=== PATIENT | female | born 1970 | race Caucasian/White ===

== ENCOUNTER 2025-05-14 13:53 | Inpatient (IN) | payer OTHER ==
[~2025-05-14] VITALS: Ht 162.6 cm; Wt 111.6 kg
[2025-05-14 17:00] VITALS: BP 120/76; PULSE 71; RESP 18; TEMP 98.8; O2SAT 98
[2025-05-14] MEDS ORDERED: DICLOFENAC SODIUM 1% 100 GM GEL [4GM] TP PRN (17:45)
[2025-05-14] MEDS: OxyCODONE HCL 5 MG IR TABLET PO PRN (18:43)
[2025-05-14] MEDS ORDERED: DEXTROSE 50%-WATER 25 GM/50 ML SYRINGE IVP PRN (18:45)
[2025-05-14] MEDS: INSULIN LISPRO 100 UNITS/ML SQ PRN (18:51)
[2025-05-14 19:00] LABS: GLUCOMETER DEV NAME(LOC) 2WR.2C; GLUCOSE,POINT OF CARE 148 MG/DL (70-110)
[2025-05-14 20:38] VITALS: BP 143/96; PULSE 79; RESP 18; TEMP 97.7; O2SAT 99
[2025-05-14] MEDS: GABAPENTIN 100 MG CAPSULE PO SCH (20:42)
[2025-05-14] MEDS: CALCIUM [CALCIUM CARB 1250MG] 500 MG TABLET PO SCH (20:42)
[2025-05-14] MEDS: CLOTRIMAZOLE 1% 15 GM CREAM TP SCH (20:42)
[2025-05-14] MEDS: HEPARIN SODIUM,PORCINE 5,000 UNITS/ML VIAL SQ SCH (20:42)
[2025-05-14] MEDS: ETHYL ALCOHOL 62% ANTISEPTIC NASAL SANITIZER 0.6 ML AMPUL NASAL SCH (20:43)
[2025-05-14] MEDS: SIMVASTATIN 40 MG TABLET PO SCH (20:48)
[2025-05-14] MEDS: METOPROLOL TARTRATE 25 MG TABLET PO SCH (20:48)
[2025-05-14] MEDS: -LIDODERM PATCH NOTE- MISC SCH (20:49)
[2025-05-14] MEDS: ACETAMINOPHEN 500 MG TABLET PO SCH (20:52)
[2025-05-15 00:16] LABS: GLUCOMETER DEV NAME(LOC) 2WR.2C; GLUCOSE,POINT OF CARE 151 MG/DL (70-110)
[2025-05-15 03:14] VITALS: O2SAT 99
[2025-05-15 07:15] LABS: GLUCOMETER DEV NAME(LOC) 2WR.1D; GLUCOSE,POINT OF CARE 157 MG/DL (70-110)
[2025-05-15] MEDS: LEVOTHYROXINE SODIUM 125 MCG TABLET PO SCH (07:24)
[2025-05-15] MEDS: OMEPRAZOLE 20 MG CAPSULE PO SCH (07:25)
[2025-05-15] MEDS: POLYETHYLENE GLYCOL 3350 17 GM PACKET PO SCH (08:08)
[2025-05-15] MEDS: FOLIC ACID 1 MG TABLET PO SCH (08:08)
[2025-05-15 08:09] VITALS: BP 134/78; PULSE 63; RESP 18; TEMP 98.1; O2SAT 100
[2025-05-15] MEDS: THIAMINE 100 MG TABLET PO SCH (08:09)
[2025-05-15] MEDS: LIDOCAINE 5% TRANSDERMAL PATCH TD SCH (08:10)
[2025-05-15 10:16] LABS: PLATELET COUNT (AUTO) 150 K/uL (150-450); RED BLOOD CELL COUNT(AUTO) 3.97 MIL/uL (4.00-5.20); RED CELL DISTRIBUTION WIDTH 14.2 % (11.5-14.5); WHITE BLOOD COUNT (AUTO) 10.0 K/uL (4.5-11.0)
[2025-05-15 10:32] LABS: ASPARTATE AMINOTRANSFERASE 43 U/L (15-37); CALCIUM, TOTAL 8.9 mg/dL (8.8-10.5); CREATININE 0.47 mg/dL (0.60-1.30); GLOMERULAR FILTR. RATE CALC > 60 mL/min (>60); GLUCOSE,RANDOM 122 mg/dL (70-110); SODIUM SERUM 134 mmol/L (136-145); TOTAL PROTEIN, SERUM 6.6 g/dL (6.4-8.2); UREA NITROGEN, BLOOD 18 mg/dL (7-18)
[2025-05-15 12:51] LABS: GLUCOMETER DEV NAME(LOC) 2WR.1D; GLUCOSE,POINT OF CARE 144 MG/DL (70-110)
[2025-05-15] MEDS ORDERED: OxyCODONE HCL 5 MG IR TABLET PO PRN (13:45)
[2025-05-15] MEDS: ACETAMINOPHEN 325 MG TABLET PO SCH (15:18)
[2025-05-15] MEDS: HEPARIN SODIUM,PORCINE 5,000 UNITS/ML VIAL SQ SCH (15:18)
[2025-05-15] MEDS: GABAPENTIN 300 MG CAPSULE PO SCH (15:18)
[2025-05-15 20:48] VITALS: BP 132/78; PULSE 72; RESP 18; TEMP 98.1; O2SAT 97
[2025-05-16 05:05] LABS: GLUCOMETER DEV NAME(LOC) 2WR.1D; GLUCOSE,POINT OF CARE 164 MG/DL (70-110)
[2025-05-16 05:05] LABS: GLUCOMETER DEV NAME(LOC) 2WR.1D; GLUCOSE,POINT OF CARE 159 MG/DL (70-110)
[2025-05-16 06:37] VITALS: BP 136/94
[2025-05-16] MEDS: OxyCODONE HCL 10 MG IR TABLET PO PRN (06:37)
[2025-05-16 07:05] LABS: GLUCOMETER DEV NAME(LOC) 2WR.2C; GLUCOSE,POINT OF CARE 161 MG/DL (70-110)
[2025-05-16 07:30] VITALS: BP 137/88; PULSE 78; RESP 18; TEMP 97.7; O2SAT 98
[2025-05-16 08:00] VITALS: BP 137/88; PULSE 78; RESP 18; TEMP 97.7; O2SAT 98
[2025-05-16] MEDS ORDERED: BISACODYL 10 MG RECTAL RECTAL SUPPOSITORY PR PRN (11:15)
[2025-05-16 12:00] LABS: GLUCOMETER DEV NAME(LOC) 2WR.2C; GLUCOSE,POINT OF CARE 128 MG/DL (70-110)
[2025-05-16 17:41] LABS: GLUCOMETER DEV NAME(LOC) 2WR.2C; GLUCOSE,POINT OF CARE 181 MG/DL (70-110)
[2025-05-16 19:27] VITALS: O2SAT 98
[2025-05-16] MEDS: TAMSULOSIN HCL 0.4 MG CAPSULE PO SCH (20:25)
[2025-05-16] MEDS: GABAPENTIN 300 MG CAPSULE PO SCH (20:25)
[2025-05-16 20:39] VITALS: BP 125/71; PULSE 73; RESP 18; TEMP 98.1; O2SAT 96
[2025-05-16] MEDS ORDERED: GABAPENTIN 300 MG CAPSULE PO SCH (21:00)
[2025-05-16 23:36] LABS: GLUCOMETER DEV NAME(LOC) 2WR.2C; GLUCOSE,POINT OF CARE 145 MG/DL (70-110)
[2025-05-17 06:36] VITALS: BP 118/75; PULSE 85
[2025-05-17] MEDS: GABAPENTIN 300 MG CAPSULE PO SCH (06:38)
[2025-05-17 06:56] LABS: GLUCOMETER DEV NAME(LOC) 2WR.2C; GLUCOSE,POINT OF CARE 140 MG/DL (70-110)
[2025-05-17 07:34] VITALS: BP 134/85; PULSE 83; RESP 18; TEMP 97.5; O2SAT 95
[2025-05-17 13:26] LABS: GLUCOMETER DEV NAME(LOC) 2WR.2C; GLUCOSE,POINT OF CARE 157 MG/DL (70-110)
[2025-05-17] MEDS: ACETAMINOPHEN 325 MG TABLET PO PRN (14:16)
[2025-05-17] MEDS: BISACODYL 10 MG RECTAL RECTAL SUPPOSITORY PR SCH (17:00)
[2025-05-17 17:50] LABS: GLUCOMETER DEV NAME(LOC) 2WR.2C; GLUCOSE,POINT OF CARE 136 MG/DL (70-110)
[2025-05-17 20:00] VITALS: BP 93/58; PULSE 85; RESP 18; TEMP 98.6; O2SAT 96
[2025-05-17 20:39] VITALS: BP 95/53; PULSE 84
[2025-05-17 20:40] VITALS: BP 96/54; PULSE 82
[2025-05-18 01:11] LABS: GLUCOMETER DEV NAME(LOC) 2WR.1D; GLUCOSE,POINT OF CARE 132 MG/DL (70-110)
[2025-05-18 07:00] LABS: GLUCOMETER DEV NAME(LOC) 2WR.1D; GLUCOSE,POINT OF CARE 152 MG/DL (70-110)
[2025-05-18 08:00] VITALS: BP 119/84; PULSE 119; RESP 20; TEMP 97.7; O2SAT 95
[2025-05-18 12:26] LABS: GLUCOMETER DEV NAME(LOC) 2WR.1D; GLUCOSE,POINT OF CARE 144 MG/DL (70-110)
[2025-05-18 16:56] LABS: GLUCOMETER DEV NAME(LOC) 2WR.1D; GLUCOSE,POINT OF CARE 155 MG/DL (70-110)
[2025-05-18 19:25] VITALS: PULSE 89; O2SAT 97
[2025-05-18 20:38] VITALS: BP 106/57; PULSE 86; RESP 18; TEMP 98.1; O2SAT 98
[2025-05-18 20:41] VITALS: BP 107/67; PULSE 87
[2025-05-18 21:20] LABS: GLUCOMETER DEV NAME(LOC) 2WR.2C; GLUCOSE,POINT OF CARE 145 MG/DL (70-110)
[2025-05-18 21:41] VITALS: O2SAT 98
[2025-05-19 07:20] VITALS: BP 105/81; PULSE 105; RESP 18; TEMP 98.2; O2SAT 98
[2025-05-19 07:25] LABS: GLUCOMETER DEV NAME(LOC) 2WR.1D; GLUCOSE,POINT OF CARE 171 MG/DL (70-110)
[2025-05-19 09:15] VITALS: BP 120/75; PULSE 108; RESP 18; TEMP 98.6; O2SAT 98
[2025-05-19 12:31] LABS: GLUCOMETER DEV NAME(LOC) 2WR.1D; GLUCOSE,POINT OF CARE 130 MG/DL (70-110)
[2025-05-19 16:50] LABS: GLUCOMETER DEV NAME(LOC) 2WR.1D; GLUCOSE,POINT OF CARE 153 MG/DL (70-110)
[2025-05-19 21:00] VITALS: BP 96/62; PULSE 92; RESP 18; TEMP 98.8; O2SAT 95
[2025-05-19 21:56] VITALS: BP 100/67; PULSE 95
[2025-05-19 22:01] LABS: GLUCOMETER DEV NAME(LOC) 2WR.1D; GLUCOSE,POINT OF CARE 131 MG/DL (70-110)
[2025-05-20 06:34] VITALS: BP 126/76; PULSE 100
[2025-05-20 06:56] LABS: GLUCOMETER DEV NAME(LOC) 2WR.2C; GLUCOSE,POINT OF CARE 156 MG/DL (70-110)
[2025-05-20 07:30] VITALS: BP 112/79; PULSE 59; RESP 18; TEMP 97.5; O2SAT 97
[2025-05-20 13:10] LABS: GLUCOMETER DEV NAME(LOC) 2WR.2C; GLUCOSE,POINT OF CARE 179 MG/DL (70-110)
[2025-05-20 14:19] VITALS: O2SAT 96
[2025-05-20 18:30] LABS: GLUCOMETER DEV NAME(LOC) 2WR.2C; GLUCOSE,POINT OF CARE 133 MG/DL (70-110)
[2025-05-20 20:43] VITALS: BP 107/74; PULSE 78; RESP 18; TEMP 98.2; O2SAT 98
[2025-05-20 21:17] VITALS: O2SAT 98
[2025-05-21 05:50] LABS: GLUCOMETER DEV NAME(LOC) 2WR.2C; GLUCOSE,POINT OF CARE 161 MG/DL (70-110)
[2025-05-21 06:22] LABS: PLATELET COUNT (AUTO) 140 K/uL (150-450); RED BLOOD CELL COUNT(AUTO) 3.24 MIL/uL (4.00-5.20); RED CELL DISTRIBUTION WIDTH 13.6 % (11.5-14.5); WHITE BLOOD COUNT (AUTO) 5.2 K/uL (4.5-11.0)
[2025-05-21 06:35] LABS: GLUCOMETER DEV NAME(LOC) 2WR.1D; GLUCOSE,POINT OF CARE 169 MG/DL (70-110)
[2025-05-21 06:46] LABS: ASPARTATE AMINOTRANSFERASE 29 U/L (15-37); CALCIUM, TOTAL 8.6 mg/dL (8.8-10.5); CREATININE 0.56 mg/dL (0.60-1.30); GLOMERULAR FILTR. RATE CALC > 60 mL/min (>60); GLUCOSE,RANDOM 178 mg/dL (70-110); SODIUM SERUM 141 mmol/L (136-145); TOTAL PROTEIN, SERUM 5.7 g/dL (6.4-8.2); UREA NITROGEN, BLOOD 15 mg/dL (7-18)
[2025-05-21 06:52] LABS: RBC MORPHOLOGY COMMENT ABNORMAL RBC MORPH
[2025-05-21 08:35] VITALS: BP 106/59; PULSE 91; RESP 18; TEMP 98.2; O2SAT 97
[2025-05-21 12:20] LABS: GLUCOMETER DEV NAME(LOC) 2WR.1D; GLUCOSE,POINT OF CARE 117 MG/DL (70-110)
[2025-05-21] MEDS ORDERED: INSULIN LISPRO 100 UNITS/ML SQ PRN (13:45)
[2025-05-21 17:10] LABS: GLUCOMETER DEV NAME(LOC) 2WR.1D; GLUCOSE,POINT OF CARE 134 MG/DL (70-110)
[2025-05-21 17:43] LABS: APPEARANCE,URINE HAZY (CLEAR); GLUCOSE, URINE (UA) NEGATIVE (NEGATIVE); LEUKOCYTE ESTERASE ,URINE LARGE (NEGATIVE); NITRATE,URINE POSITIVE (NEGATIVE); OCCULT BLOOD,URINE TRACE (NEGATIVE); SPECIFIC GRAVITIY, URINE 1.028 (1.003-1.030)
[2025-05-21 20:00] VITALS: BP 92/59; PULSE 90; RESP 18; TEMP 98.6; O2SAT 100
[2025-05-21] MEDS: NITROFURANTOIN MONOHYD/M-CRYST 100 MG CAPSULE [MACROBID] PO SCH (20:10)
[2025-05-21] MEDS: TAMSULOSIN HCL 0.4 MG CAPSULE PO SCH (20:11)
[2025-05-21 21:11] LABS: GLUCOMETER DEV NAME(LOC) 2WR.2C; GLUCOSE,POINT OF CARE 135 MG/DL (70-110)
[2025-05-22 07:41] LABS: GLUCOMETER DEV NAME(LOC) 2WR.2C; GLUCOSE,POINT OF CARE 203 MG/DL (70-110)
[2025-05-22 08:00] VITALS: BP 133/66; PULSE 91; RESP 18; TEMP 98.4; O2SAT 95
[2025-05-22] MEDS: INSULIN LISPRO 100 UNITS/ML SQ PRN (08:39)
[2025-05-22 12:41] LABS: GLUCOMETER DEV NAME(LOC) 2WR.1D; GLUCOSE,POINT OF CARE 207 MG/DL (70-110)
[2025-05-22 17:10] LABS: GLUCOMETER DEV NAME(LOC) 2WR.1D; GLUCOSE,POINT OF CARE 209 MG/DL (70-110)
[2025-05-22 20:00] VITALS: BP 120/70; PULSE 93; RESP 18; TEMP 98.8; O2SAT 97
[2025-05-22 21:10] LABS: GLUCOMETER DEV NAME(LOC) 2WR.1D; GLUCOSE,POINT OF CARE 280 MG/DL (70-110)
[2025-05-23 07:00] LABS: GLUCOMETER DEV NAME(LOC) 2WR.1D; GLUCOSE,POINT OF CARE 265 MG/DL (70-110)
[2025-05-23 08:00] VITALS: BP 141/75; PULSE 89; RESP 18; TEMP 97.9; O2SAT 96
[2025-05-23 12:16] LABS: GLUCOMETER DEV NAME(LOC) 2WR.1D; GLUCOSE,POINT OF CARE 189 MG/DL (70-110)
[2025-05-23 17:50] LABS: GLUCOMETER DEV NAME(LOC) 2WR.1D; GLUCOSE,POINT OF CARE 228 MG/DL (70-110)
[2025-05-23 19:52] VITALS: BP 118/67; PULSE 76; RESP 18; TEMP 97.5; O2SAT 99
[2025-05-23 21:15] LABS: GLUCOMETER DEV NAME(LOC) 2WR.1D; GLUCOSE,POINT OF CARE 240 MG/DL (70-110)
[2025-05-23 22:03] VITALS: O2SAT 99
[2025-05-24 07:20] LABS: GLUCOMETER DEV NAME(LOC) 2WR.2C; GLUCOSE,POINT OF CARE 228 MG/DL (70-110)
[2025-05-24 08:00] VITALS: BP 128/69; PULSE 69; RESP 18; TEMP 98.1; O2SAT 96
[2025-05-24 08:23] LABS: PLATELET COUNT (AUTO) 190 K/uL (150-450); RED BLOOD CELL COUNT(AUTO) 3.35 MIL/uL (4.00-5.20); RED CELL DISTRIBUTION WIDTH 13.8 % (11.5-14.5); WHITE BLOOD COUNT (AUTO) 6.7 K/uL (4.5-11.0)
[2025-05-24 08:34] LABS: RBC MORPHOLOGY COMMENT ABNORMAL RBC MORPH
[2025-05-24 08:46] LABS: CALCIUM, TOTAL 9.1 mg/dL (8.8-10.5); CREATININE 0.52 mg/dL (0.60-1.30); GLOMERULAR FILTR. RATE CALC > 60 mL/min (>60); GLUCOSE,RANDOM 228 mg/dL (70-110); SODIUM SERUM 141 mmol/L (136-145); UREA NITROGEN, BLOOD 19 mg/dL (7-18)
== END 2025-05-24 12:05 | disposition short-term general hospital (02) | DRG 52 ==
LOC: 2WR 16:50
PROVIDERS: ADMIT Physical Medicine & Rehabilitation; ATTEND Physical Medicine & Rehabilitation
DX: G82.20 Paraplegia, unspecified (principal); E46 Unspecified protein-calorie malnutrition; E87.1 Hypo-osmolality and hyponatremia; K59.2 Neurogenic bowel, not elsewhere classified; Z51.5 Encounter for palliative care; E03.9 Hypothyroidism, unspecified; E11.9 Type 2 diabetes mellitus without complications; B96.20 Unspecified Escherichia coli [E. coli] as the cause of diseases classified elsewhere; E66.813 Obesity, class 3; N39.0 Urinary tract infection, site not specified; M32.9 Systemic lupus erythematosus, unspecified; F10.10 Alcohol abuse, uncomplicated; F32.9 Major depressive disorder, single episode, unspecified; I10 Essential (primary) hypertension; Z68.42 Body mass index [BMI] 45.0-49.9, adult; M06.9 Rheumatoid arthritis, unspecified; F43.22 Adjustment disorder with anxiety; N31.9 Neuromuscular dysfunction of bladder, unspecified; M79.7 Fibromyalgia; T40.2X5A Adverse effect of other opioids, initial encounter; Z74.09 Other reduced mobility; G89.29 Other chronic pain; K59.03 Drug induced constipation; R33.9 Retention of urine, unspecified; R74.8 Abnormal levels of other serum enzymes; R26.9 Unspecified abnormalities of gait and mobility; M54.9 Dorsalgia, unspecified; Z79.52 Long term (current) use of systemic steroids; Z85.3 Personal history of malignant neoplasm of breast; Z86.711 Personal history of pulmonary embolism; Z90.13 Acquired absence of bilateral breasts and nipples; Y92.89 Other specified places as the place of occurrence of the external cause; Z79.899 Other long term (current) drug therapy
CPT/HCPCS: 80048; 80053; 81001; 82962; 85025; 87077; 87081; 87086; 87186; 97110; 97112; 97163; 97167; 97530; 97535; 99366; J1644; J8540